=== PATIENT | female | born 1960 | race Hispanic/Latino ===

== ENCOUNTER 2020-11-27 19:51 | Emergency (ER) | payer SELFPAY | END 2020-11-27 22:15 | disposition home or self-care (01) | LOC: ERS 19:51 | DX: S06.0X9A Concussion with loss of consciousness of unspecified duration, initial encounter (principal); S50.812A Abrasion of left forearm, initial encounter; E03.9 Hypothyroidism, unspecified; E06.3 Autoimmune thyroiditis; Z79.899 Other long term (current) drug therapy; Y04.0XXA Assault by unarmed brawl or fight, initial encounter | CPT/HCPCS: 90471 ==